=== PATIENT | male | born 1980 | race Caucasian/White ===

== ENCOUNTER → 2017-03-15 | Outpatient (CLI) | payer BC ==
--- NOTE | 2017-03-15 19:19 | Diagnostic Imaging Report ---
EXAMINATION: Scrotal ultrasound. INDICATION: Right scrotal lump. FINDINGS: The right testicle is 4.5 x 2.4 x 3.2 cm. The left testicle is 4.5 x 2.6 x 2.8 cm. There are numerous microcalcifications seen within the testicles compatible with microlithiasis. There is an extratesticular isoechoic nodule measuring 5 mm seen in the right side of the scrotum abutting the inferior aspect of the testicle. It has smooth margins with no internal vascularity with color Doppler. Etiology is uncertain. A testicular appendage is possible, although this is not certain. There are arterial and venous waveforms seen in both testicles. IMPRESSION: 1. Bilateral diffuse testicular microlithiasis. This is reported to be associated with increased risk of developing testicular malignancy. Scrotal ultrasound surveillance could be considered. 2. There is a 5 mm isoechoic nodule abutting the lower pole of the right testicle. This is probably an extratesticular lesion, although an exophytic testicular appendage is possible. The exact etiology is not clear. A followup study in three months is recommended to reevaluate. Dictated by: Dictated on workstation # [id number]
== END ==
LOC: RAD 12:45
PROVIDERS: ATTEND Internal Medicine
DX: N50.89 Other specified disorders of the male genital organs (principal)
CPT/HCPCS: 76870

== ENCOUNTER → 2017-06-19 | Outpatient (CLI) | payer BC ==
--- NOTE | 2017-06-19 13:58 | Diagnostic Imaging Report ---
Scrotal ultrasound. INDICATION: Followup scrotal mass. FINDINGS: The right testicle is 4.6 x 2.5 x 2.9 cm. The left testicle is 4.4 x 2.3 x 2.5 cm. There is a hyperechoic nodule along the inferior aspect of the right testicle that appears to be extratesticular measuring 5 x 4 x 4 mm. This is similar to exam from 03/15/2017. The nodule demonstrates no internal vascularity with color Doppler. The testicles demonstrate arterial waveforms bilaterally. There is diffuse testicular microlithiasis noted. Small bilateral hydrocele seen. IMPRESSION: 1. Along the inferior aspect of the scrotum on the right side, there is a circumscribed hyperechoic nodule measuring 5 mm abutting the lower aspect of the testicle. This is likely a benign extratesticular nodule. Another followup in six months is recommended to ensure longer stability. 2. Diffuse bilateral testicular microlithiasis. Dictated by: Dictated on workstation # [id number]
== END ==
LOC: RAD 12:08
PROVIDERS: ATTEND Internal Medicine
DX: N50.89 Other specified disorders of the male genital organs (principal)
CPT/HCPCS: 76870

== ENCOUNTER 2019-02-22 05:37 | Outpatient (CLI) | payer BC ==
[~2019-02-22] VITALS: Ht 188 cm; Wt 86.2 kg
== END 2019-02-22 12:06 | disposition home or self-care (01) ==
LOC: PREOP 05:37
PROVIDERS: ATTEND Internal Medicine
DX: Z01.818 Encounter for other preprocedural examination (principal)

== ENCOUNTER 2019-03-01 07:07 | Day surgery (SDC) | payer BC, OTHER ==
[~2019-03-01] VITALS: Ht 188 cm; Wt 86.2 kg
[~2019-03-01 07:07] MED LIST: D5 LR IV SOLUTION 1,000 ML IV ONE
[2019-03-01] MEDS ORDERED: D5 LR IV SOLUTION 1,000 ML IV STA (07:09)
[2019-03-01] MEDS ORDERED: fentaNYL INJECTION 100 MCG/2 ML AMP IVP ONE (07:15)
[2019-03-01] MEDS ORDERED: LIDOCAINE JELLY 2% 6 ML SYRINGE MM PRN (07:15)
[2019-03-01] MEDS ORDERED: MIDAZOLAM 2 MG/2 ML (VERSED) VIAL IVP ONE (07:15)
[2019-03-01 07:39] VITALS: BP 127/76
[2019-03-01] MEDS ORDERED: fentaNYL INJECTION 100 MCG/2 ML AMP ONE (07:43)
[2019-03-01] MEDS ORDERED: LIDOCAINE JELLY 2% 6 ML SYRINGE ONE (07:43)
[2019-03-01] MEDS ORDERED: MIDAZOLAM 2 MG/2 ML (VERSED) VIAL ONE ×2 (07:44)
[2019-03-01 08:30] VITALS: BP 121/64
--- NOTE | 2019-03-01 08:35 | Pre-Op Note & Conscious Sedat ---
Pre-Operative Progress Note H&P Reviewed The H&P was reviewed, patient examined and no changes noted. Date H&P Reviewed: Mar 01, 2019 Time H&P Reviewed: 07:40 Conscious Sedation Pre-Proced ASA Score 1 For ASA 3 and 4: Consider anesthesia and medical clearance. Also, for patients with a history of failed moderate sedation consider anesthesia. Airway Lungs Heart ASA score ASA 1: a normal healthy patient ASA 2: a patient with a mild systemic disease (mid diabetes, controlled hypertension, obesity ASA 3: a patient with a severe systemic disease that limits activity (angina, COPD, prior Myocardial infarction) ASA 4: a patient with an incapacitating disease that is a constant threat to life (CHF, renal failure) ASA 5: a moribund patient not expected to survive 24 hrs. (ruptured aneurysm) ASA 6: a declared brain- patient whose organs are being harvested. For emergent operations, add the letter E after the classification Mallampati Classification Grade 1 Sedation Plan Analgesia, Amnesia, Plan communicated to team members, Discussed options with patient/fam, Discussed risks with patient/fam The patient is an appropriate candidate to undergo the planned procedure, sedation, and anesthesia. The patient immediately re-assessed prior to indication. AJITH KEE MD Mar 01, 2019 08:35
[2019-03-01 09:00] VITALS: BP 121/64
--- NOTE | 2019-03-01 17:31 | OPERATIVE REPORT ---
DATE OF SERVICE: SCREENING COLONOSCOPY Procedure being done at an earlier age as the patient is higher than average risk due to family history for colon cancer. See assessment and plan. The patient was placed in the left lateral decubitus position. Prior to undergoing colonoscopy, digital rectal evaluation was performed. Anal sphincter tone was normal and the perianal reflex was intact. There is no evidence for internal or external hemorrhoids. The prostate is normal in size, anodular, nontender to digital inspection. No abnormalities. No additional inspection of anal canal or distal rectal vault. The colonoscope was then inserted into the rectum and under direct visualization advanced to the cecum. The cecum was identified by identification of the ileocecal valve and cecal strap. Photographic documentation was obtained. Careful inspection was made as the colonoscope was withdrawn. The quality of the prep was good. FINDINGS: There is no evidence for internal or external hemorrhoids and the rectum, sigmoid colon, descending colon, transverse colon, ascending colon and cecum were unremarkable. No evidence for diverticular disease, neoplasia or other abnormalities were noted. ASSESSMENT: Normal colonoscopy of the cecum. The patient does have strong family history for colonic polyposis as well as cancer and several second degree relatives. His father had precancerous polyps removed at the age of 62 and his mother in her late 30s also had precancerous polyps removed. On his mother's side, he has a grandfather who of colon cancer in his 60s, great uncle who of colon cancer in his 60s and another grandparent who also apparently succumbed to colon cancer on mother's side of the family. Job ID: [id number] DocumentID: [id number] Dictated Date: 03/01/2019 11:13:54 Welcome Hostess Date: 03/01/2019 17:30:56 Dictated By: AJITH KEE MD MTDD
== END 2019-03-01 09:05 | disposition home or self-care (01) ==
LOC: ENDO 07:07
PROVIDERS: ATTEND Internal Medicine
DX: Z12.11 Encounter for screening for malignant neoplasm of colon (principal); Z80.0 Family history of malignant neoplasm of digestive organs; Z83.71 Family history of colonic polyps